=== PATIENT | female | born 1975 | race Caucasian/White ===

== ENCOUNTER 2018-07-20 10:26 | Emergency (ER) | payer MEDICAID ==
[~2018-07-20] VITALS: Ht 152.4 cm; Wt 61.5 kg
[~2018-07-20 10:26] MED LIST: ALBU6.7H INH; CHLO25CA10 PO
[2018-07-20 10:53] VITALS: BP 123/70
[2018-07-20 10:53] LABS: BASOPHILS # (AUTO) 0.1 X10'3 (0-0.2); BASOPHILS % (AUTO) 1.1 % (0-1); EOSINOPHILS # (AUTO) 0.2 X10'3 (0-0.9); HEMATOCRIT 44.5 % (35.0-45.0); HEMOGLOBIN 14.9 g/dl (12.0-16.0); LYMPHOCYTES # (AUTO) 0.8 X10'3 (1.1-4.8); LYMPHOCYTES % (AUTO) 6.4 % (21-51); MEAN CORPUSCULAR HEMOGLOBIN 30.2 PG (27.0-31.0); MEAN CORPUSCULAR HGB CONC 33.5 % (33.0-36.5); MEAN CORPUSCULAR VOLUME 90.2 FL (78-98); MONOCYTES # (AUTO) 0.9 X10'3 (0-0.9); MONOCYTES % (AUTO) 7.6 % (2-12); NEUTROPHILS # (AUTO) 10.4 X10'3 (1.8-7.7); NEUTROPHILS % (AUTO) 82.9 % (42-75); PLATELET COUNT 233 X10'3 (140-440); RED BLOOD COUNT 4.93 X10'6 (4.20-5.60); RED CELL DISTRIBUTION WIDTH 11.9 % (11.5-14.5); WHITE BLOOD COUNT 12.4 X10'3 (4.5-11.0)
[2018-07-20 11:02] LABS: INR 1.1 INR
[2018-07-20 11:03] LABS: ALANINE AMINOTRANSFERASE 29 U/L (12-78); ALBUMIN 4.3 G/DL (3.4-5.0); ALBUMIN/GLOBULIN RATIO 1.2 (1.1-1.5); ALKALINE PHOSPHATASE 90 IU/L (46-116); ANION GAP 11 (8-16); ASPARTATE AMINO TRANSFERASE 22 U/L (10-37); BILIRUBIN,TOTAL 1.5 MG/DL (0.1-1.0); BLOOD UREA NITROGEN 11 MG/DL (7-18); CALCIUM 8.7 MG/DL (8.5-10.1); CHLORIDE 101 MMOL/L (99-107); GLUCOSE 100 MG/DL (70-104); POTASSIUM 3.7 MMOL/L (3.5-5.1); SODIUM 138 MMOL/L (135-145); TOTAL CARBON DIOXIDE 25.8 MMOL/L (24-32); eGFR 61 ML/MIN
[2018-07-20 13:13] LABS: URINE HCG NEGATIVE (NEG)
[2018-07-20 13:14] LABS: CLARITY,URINE CLEAR (Clear); COLOR,URINE YELLOW (Yellow); GLUCOSE, URINE NEGATIVE (Neg); KETONES,URINE 15 mg/dl (Neg); LEUKOCYTE ESTERASE ,URINE SMALL (Neg); NITRITES, URINE NEGATIVE (Neg); OCCULT BLOOD,URINE SMALL (Neg); PROTEIN,URINE NEGATIVE (Neg); UROBILINOGEN,URINE 0.2 E.U/dL (0.2-1.0)
[2018-07-20 13:28] LABS: UA COLLECTION TYPE CLN CATCH MIDSTREAM
[2018-07-20 13:29] LABS: BACTERIA,URINE FEW /HPF (Neg); SQUAMOUS EPITHELIAL CELL,UR FEW /LPF (FEW)
[2018-07-20] MEDS ORDERED: NITR100C6 PO (13:33)
== END 2018-07-20 13:52 | disposition home or self-care (01) ==
LOC: ER 10:27
DX: N39.0 Urinary tract infection, site not specified (principal); R10.9 Unspecified abdominal pain; J45.909 Unspecified asthma, uncomplicated; Z98.890 Other specified postprocedural states; Z90.710 Acquired absence of both cervix and uterus; Z88.0 Allergy status to penicillin
CPT/HCPCS: 36415; 74176; 80053; 81001; 81025; 85025; 85610; 87077; 87088; 87186; 99285

== ENCOUNTER 2019-05-19 06:25 | Emergency (ER) | payer MEDICAID ==
[~2019-05-19] VITALS: Ht 152.4 cm; Wt 52.7 kg
[~2019-05-19 06:25] MED LIST changes: -ALBU6.7H INH; +ALBU6.7H9 INH; +NITR100C6 PO
[2019-05-19] MEDS ORDERED: ondansetron/PF 4mg/2ml inj IV ONE (06:50)
[2019-05-19] MEDS ORDERED: ketorolac trometh. 30mg/ml inj. IV ONE (06:50)
[2019-05-19] MEDS ORDERED: morphine 4 MG/ML inj SYRINge IV ONE (06:50)
--- NOTE | 2019-05-19 07:21 | NUR ---
pt out to [place] via [place] with primary rn
--- NOTE | 2019-05-19 07:33 | NUR ---
pt [place]
[2019-05-19] MEDS ORDERED: proCHLORperazine 10 MG/2 ml inj IV ONE (07:35)
[2019-05-19] MEDS ORDERED: METH500T PO (08:48)
[2019-05-19] MEDS ORDERED: IBUP-1984 PO (08:48)
[2019-05-19] MEDS ORDERED: HYDR-3965 PO (08:48)
[2019-05-19 09:07] VITALS: BP 110/68
== END 2019-05-19 09:10 | disposition home or self-care (01) ==
LOC: ER 06:26
DX: S29.019A Strain of muscle and tendon of unspecified wall of thorax, initial encounter (principal); G89.29 Other chronic pain; M25.511 Pain in right shoulder; J45.909 Unspecified asthma, uncomplicated; Z90.710 Acquired absence of both cervix and uterus; Z86.2 Personal history of diseases of the blood and blood-forming organs and certain disorders involving the immune mechanism; Z98.890 Other specified postprocedural states; Z88.0 Allergy status to penicillin; Z79.899 Other long term (current) drug therapy; X50.1XXA Overexertion from prolonged static or awkward postures, initial encounter; Y93.89 Activity, other specified; Y92.89 Other specified places as the place of occurrence of the external cause; Y99.8 Other external cause status
CPT/HCPCS: 71045; 72128; 96374; 96375; 99284; J0780; J1885; J2270; J2405

== ENCOUNTER 2021-02-06 08:57 | Emergency (ER) | payer MEDICAID ==
[~2021-02-06] VITALS: Ht 152.4 cm; Wt 58.6 kg
[~2021-02-06 08:57] MED LIST changes: +METH500T PO
[2021-02-06 09:07] VITALS: BP 122/79
[2021-02-06] MEDS: ibuprofen 200mg tablet PO ONE (11:46)
== END 2021-02-06 11:49 | disposition home or self-care (01) ==
LOC: ER 08:57
DX: S93.402A Sprain of unspecified ligament of left ankle, initial encounter (principal); M25.572 Pain in left ankle and joints of left foot; M25.472 Effusion, left ankle; J45.909 Unspecified asthma, uncomplicated; G89.29 Other chronic pain; Z86.2 Personal history of diseases of the blood and blood-forming organs and certain disorders involving the immune mechanism; Z90.710 Acquired absence of both cervix and uterus; Z98.890 Other specified postprocedural states; Z88.0 Allergy status to penicillin; Z79.899 Other long term (current) drug therapy; W01.0XXA Fall on same level from slipping, tripping and stumbling without subsequent striking against object, initial encounter; Y93.89 Activity, other specified; Y92.89 Other specified places as the place of occurrence of the external cause; Y99.8 Other external cause status
CPT/HCPCS: 29515; 73610; 99284

== ENCOUNTER 2021-07-28 10:07 | Emergency (ER) | payer MEDICAID ==
[2021-07-28 10:11] VITALS: BP 160/85
== END 2021-07-28 15:47 | disposition home or self-care (01) ==
LOC: ER 10:07
DX: R23.3 Spontaneous ecchymoses (principal); J45.909 Unspecified asthma, uncomplicated; D64.9 Anemia, unspecified; G89.29 Other chronic pain; Z88.0 Allergy status to penicillin; Z79.899 Other long term (current) drug therapy
CPT/HCPCS: 93971; 99284